=== PATIENT | female | born 1940 | race Caucasian/White ===

== ENCOUNTER 2016-09-05 19:26 | Inpatient (IN) | payer MEDICARE ==
--- NOTE | ~2016-09-05 | OP ---
Record Of Operation [facility] [address] [place]. [address] NAME: YOEL SOMERS : 42 STATUS : ADM IN [facility]#: [id number] AGE: 76 ADM/REG DATE : 09/05/16 MR#: [id number] REPORT SERV DATE: 09/07/16 DICTATED BY: JANET BANKS DATE: 09/06/16 REPORT STATUS : Draft TRANSCRIBED BY: MODJanie DATE: 09/06/16 DATE OF PROCEDURE: 09/06/2016 PREOPERATIVE DIAGNOSES: 1. Empyema of the right lung. 2. History of right lung pneumonia. 3. Breast carcinoma, status post left mastectomy. 4. Remote history of smoking. POSTOPERATIVE DIAGNOSES: 1. Empyema of the right lung. 2. History of right lung pneumonia. 3. Breast carcinoma, status post left mastectomy. 4. Remote history of smoking. PROCEDURE PERFORMED: Right video-assisted thoracic surgery with decortication of the right lung. SURGEON: Janet Banks M.D. SIDE SEAM MACHINE OPERATOR: Luis A Zhu. ANESTHESIA: General. BEREAVEMENT COORDINATOR: Rick Fraser M.D. HOSPITALIST: Rony Barrientos M.D. INDICATIONS: This is a 76-year-old female with a remote history of smoking who had a history of breast cancer, status post left pneumonectomy in the past. She was admitted to [facility] on the with shortness of breath and oxygen desaturation. She was diagnosed with pneumonia and had a white count of 53,000. She had right hilar prominence with extensive new airway disease on CT scan and a right effusion. She was treated with antibiotics and observed there. A Pulmonary consult was obtained the next day that indicated hypoxic respiratory failure secondary to pneumonia and empyema. She was transferred to [facility] yesterday for sepsis, respiratory failure, and loculated right pleural effusions. Dr. Sloan was initially consulted and plan was to do decortication on Thursday. Unfortunately, the patient had worsening oxygenation needs and continued shortness of breath. She was seen by Cardiology after a period of supraventricular tachycardia and it was felt that the patient should undergo treatment for her right empyema. We were asked to intervene and discuss this procedure with the patient and family, and wished to proceed. FINDINGS AT OPERATION: 1. Empyema involved in all three lobes. The middle lobe appeared to be socked in with pneumonia and had dense adhesions to the pericardial fat, most of these were taken Record Of Operation [address] [address] NAME: YOEL SOMERS : 42 STATUS : ADM IN PAT#: [id number] AGE: 76 ADM/REG DATE : 09/05/16 MR#: [id number] REPORT SERV DATE: 09/07/16 DICTATED BY: JANET BANKS DATE: 09/06/16 REPORT STATUS : Draft TRANSCRIBED BY: CHRIS DATE: 09/06/16 down. There was some abscess material in the chest that was removed. Cultures of the fluid were sent. 2. Complete decortication of the lung was performed. Pathologic specimen includes culture of the right chest. DESCRIPTION OF PROCEDURE: The patient was brought to the operating suite where general anesthesia was induced and airway was secured with a dual lumen endotracheal tube. Lines secured by Dr. Glez. Lopes catheter was placed. The patient was rolled in a left lateral decubitus position, right chest prepped with Hibiclens and ChloraPrep and draped with Ioban sterile sheets. The right lung was deflated by Anesthesia. Three VATS incisions in total were made. The first incision was a 3 to 4 cm incision placed along the posterior axillary line and five intercostal spaces above the costal margin. The second incision was made 1 to 2 cm in length and along the anterior axillary line and one intercostal space above this site and guided by thoracoscopic visualization. The third site was 1 to 2 cm in length and also along the anterior axillary line and two intercostal spaces inferior to the largest VATS incision and guided by thoracoscope. The largest VATS incision was carried through subcutaneous tissue and chest wall musculature. The intercostal musculature was divided and we entered the chest bluntly. A protractor soft tissue retractor was placed. There was a large amount of pleural fluid that was encountered and this was cloudy and this was aspirated and removed, some of this was sent for cultures. Then, the other 2 VATS incisions were created and access into the chest obtained under thoracoscopic visualization. Over the next hour, we decorticated the right lung completely. There were adhesions of the right middle lobe to the pericardium and pericardial fat, and as this was taken down, several abscesses were encountered and these were drained and evacuated. The chest was irrigated copiously with sterile water and saline. Decorticate peel was able to be removed from the lung almost in its complete entirety. Ventilation demonstrated good aeration and filling of the chest. Once this was completed, the chest was again irrigated with sterile water and saline, and hemostasis was obtained. Then, two chest tubes were placed to the most anterior thoracoscopic port sites and secured to the skin. The Protractor soft tissue retractor was removed and the largest VATS incision was closed in layers with absorbable suture and skin closed in subcuticular fashion. The patient tolerated the procedure well. There were no complications. Sponge and needle counts were correct. DISPOSITION: The patient was taken to the intensive care unit in a stable and intubated condition. RAMESH/CHRIS Janet Banks M.D. Record Of Operation [address] [address] NAME: YOEL SOMERS : 42 STATUS : ADM IN PAT#: [id number] AGE: 76 ADM/REG DATE : 09/05/16 MR#: [id number] REPORT SERV DATE: 09/07/16 DICTATED BY: JANET BANKS DATE: 09/06/16 REPORT STATUS : Draft TRANSCRIBED BY: CHRIS DATE: 09/06/16 / [id number] CC: Rosa Bergman M.D.
--- NOTE | ~2016-09-05 | DS ---
Discharge Summary [address] [place]. [address] NAME: YOEL SOMERS : 42 STATUS : DIS IN PAT#: [id number] AGE: 76 ADM/REG DATE : 09/05/16 MR#: [id number] REPORT SERV DATE: 09/16/16 DICTATED BY: KRYSTA LEE DATE: 09/13/16 REPORT STATUS : Draft TRANSCRIBED BY: MODL DATE: 09/13/16 ADMISSION DATE: 09/05/2016 DISCHARGE DATE: 09/13/2016 DISCHARGE DIAGNOSES: 1. Sepsis with right-sided pneumonia. 2. Right-sided community-acquired pneumonia with a parapneumonic complicated effusion, status post video-assisted thoracostomy and pleurodesis done by Dr. Banks. 3. Antibiotic-associated diarrhea. 4. Recovered acute kidney injury. 5. Hypertension. 6. Chronic pain management patient, was weaned off MS Contin during this hospitalization, now she is taking only Roxicodone for the as-needed pain. 7. Atrial tachycardia during this hospitalization, seen by Dr. Meek, was put on amiodarone and Coreg, was replaced from Lopressor. 8. Obesity. CONSULTANTS: 1. Asha Lopez M.D. for Pulmonary. 2. Derick Banks M.D. 3. Cirilo Meek M.D. 4. Nicola Thorpe M.D. PROCEDURE: Right video-assisted thoracic surgery with decortication of the right lung done by Dr. Banks. HISTORY OF PRESENT ILLNESS: This is a 76-year-old female patient who initially came to the emergency room with pain allover, especially with chest pain on the date of 09/04/2016. Please see dictated H and P done by Dr. Morales for the detailed physical examination and present illness. HOSPITAL COURSE: The patient was admitted to the hospital with right-sided pneumonia with a finding of complicated effusion. She was treated with IV antibiotics, seen by Dr. Rosemary Dent for the loculated right pleural effusion and sepsis, and she was put on empiric antibiotics with Zosyn and Levaquin. Because of the concern for the empyema, the patient was recommended to be transferred to [facility] for VATS and decortication under Dr. Banks's evaluation. She came to the hospital, got VATS on the right side and decortication. Meanwhile, during the hospitalization, she went through atrial tachycardia and chronic pain issue along with chronic benzodiazepine and opioid use. Meanwhile, she was kept in the hospital, her chronic long-acting opioid has been discontinued by one of our thoracic surgeons, and she was maintained on as-needed short- acting Roxicodone use. She is tolerating fairly well. Her medications have been slightly changed from Lopressor to Coreg and amiodarone was added on this admission through Dr. Discharge Summary [address] [address] NAME: YOEL SOMERS : 42 STATUS : DIS IN PAT#: [id number] AGE: 76 ADM/REG DATE : 09/05/16 MR#: [id number] REPORT SERV DATE: 09/16/16 DICTATED BY: KRYSTA LEE DATE: 09/13/16 REPORT STATUS : Draft TRANSCRIBED BY: CHRIS DATE: 09/13/16 Laura's recommendation. Most recently, during this hospitalization, she suffered from constant diarrhea, it was thought to be related to antibiotic use. After the Zosyn was discontinued, her diarrhea has been much improved. Her C. diff stool test was negative. Overall had a long hospitalization with maximized inpatient benefit. The patient finally decided to go to alf facility for acute rehab. Therefore, she will be discharged to [facility] for ongoing rehab. Please see dictated interim discharge summary done by Dr. Gallagher for the detailed hospitalization course. DISCHARGE MEDICATION: 1. Aspirin 81 mg once a day. 2. Amiodarone 20 mg once a day. 3. Wellbutrin XL 150 mg once a day. 4. Coreg 12.5 mg twice a day. 5. Lexapro 20 mg once a day. 6. Zantac 150 mg twice a day. 7. Neurontin 600 mg three times a day. 8. Ativan 0.5 mg once a day and 1 mg at bed time. 9. Multivitamin once a day. 10.Nystatin 4 times a day, swish and swallow. 11.Florastor 1 capsule twice a day. 12.Spiriva once a day. 13.Trazodone 100 mg once at nighttime. 14.Zinc sulfate 220 mg once a day. 15.Brovana once a day. 16.DuoNeb four times a day. 17.Tylenol as needed. 18.Protonix 40 mg once at nighttime. 19.MS Contin was discontinued. 20.Roxicodone was given at 10 mg every 6 to 8 hours as needed. DISPOSITION: The patient is discharged to [facility]. DIET: Regular diet. TIME SPENT: More than 30 minutes in discharge coordination and education. EKL/MODL Krysta Lee M.D. Discharge Summary [address] [address] NAME: YOEL SOMERS : 42 STATUS : DIS IN PAT#: [id number] AGE: 76 ADM/REG DATE : 09/05/16 MR#: [id number] REPORT SERV DATE: 09/16/16 DICTATED BY: KRYSTA LEE DATE: 09/13/16 REPORT STATUS : Draft TRANSCRIBED BY: CHRIS DATE: 09/13/16 / [id number] CC: Rosa Arias M.D.
--- NOTE | ~2016-09-05 | IDS ---
Interim Discharge Summary [facility] [address] [place]. [address] NAME: YOEL SOMERS : 44 STATUS : ADM IN [facility]#: [id number] AGE: 76 ADM/REG DATE : 09/05/16 MR#: [id number] REPORT SERV DATE: 09/12/16 DICTATED BY: JEWEL GALLAGHER DATE: 09/12/16 REPORT STATUS : Draft TRANSCRIBED BY: MODL DATE: 09/12/16 ADMISSION DATE: 09/05/2016 DISCHARGE DATE: CONSULTANTS: 1. Asha Lopez M.D., Pulmonary Critical Care. 2. Derick Banks M.D., Cardiothoracic Surgeon. 3. Cirilo Meek M.D., Cardiology. DISCHARGE DIAGNOSES: 1. Sepsis. 2. Right-sided community-acquired pneumonia. 3. Complicated right parapneumonic effusion, requiring video-assisted thoracic surgery decortication on 09/06/2016. 4. Antibiotic-associated diarrhea. 5. Acute kidney injury, transient, resolved. 6. Acute hypoxic respiratory failure. 7. Essential thrombocythemia. 8. Leukocytosis, probably due to sepsis. 9. Hypertension, not ideally controlled. 10.Chronic pain in back and hips and neuropathy. 11.Major depression, anxiety, and insomnia with restless legs. 12.History of left-sided breast cancer, stage IIIC. 13.History of peripheral neuropathy due to chemotherapy. 14.T7 compression fracture. 15.Episodes of supraventricular tachycardia. 16.History of previous pulmonary embolism in 2010. 17.History of psoriasis in the past. HISTORY: The patient presented to [facility] Emergency Room with shortness of breath, cough, respiratory rate 22, pulse 109, and chest x-ray revealed right basilar pneumonia. She had a CT scan of her chest without contrast on 09/04/2016 showing right middle lobe and right lower lobe infiltrates, multifocal loculated pleural effusion, right chest, fatty liver and a chronic T12 compression fracture with vertebroplasty-type changes. The patient also had CT scan of the abdomen and pelvis showing no acute intraabdominal pathology other than the fatty liver, some chronic renal cortical scarring, and chronic right hip arthroplasty changes. HOSPITAL COURSE: The patient was treated with antibiotics and transferred down here to this [place] to be seen by Cardiothoracic Surgery and Dr. Banks took her to the operating room on 09/06/2016 and did right video-assisted thoracic surgery with decortication and chest tube in place post procedure. I find no material that was submitted for pathology yet at this time. However, cultures of blood, no growth. Cultures of the right pleural fluid, grew out a sparse amount of diphtheroids, felt to be consistent with contaminant. The patient has had a slow recovery, but chest tubes are out now, so she is a little bit Interim Discharge Summary [address] [address] NAME: YOEL SOMERS : 42 STATUS : ADM IN PAT#: [id number] AGE: 76 ADM/REG DATE : 09/05/16 MR#: [id number] REPORT SERV DATE: 09/12/16 DICTATED BY: JEWEL GALLAGHER DATE: 09/12/16 REPORT STATUS : Draft TRANSCRIBED BY: CHRIS DATE: 09/12/16 more mobile. She has had a lot of diarrhea. The stool specimens have been C. diff negative. She has no significant abdominal pain with it. It is improving with Lomotil. She is eating better. Her nausea is better. Her chronic pain medicines have been tapered from her MS Contin, which has been stopped and we reduced the quantity of Roxicodone from 20 mg q.6 hours to 10 mg q.6 hours. She asked for more help to sleep at night, so I have increased her trazodone from 100 to 150 at night. While here, she has had episodes of supraventricular tachycardia and was seen by Dr. Cirilo Meek. She had metoprolol given intravenously and this helped. He recommended that she be given beta-lindy orally and low-dose amiodarone for rhythm control perioperatively, the patient's rhythm has remained sinus. She has a history of breast cancer. She is supposed to be taking anastrozole. She had forgotten to mention it in her home medicines. We have had her medical oncologist, Dr. Thorpe, see her because of her persistent leukocytosis. He felt that her leukocytosis was probably more part of her infectious process than it was from her essential thrombocythemia. He does not recommend any additional therapy other than getting her back on her anastrozole and follow up with him in the office longitudinally. Physical Therapy feels she needs inpatient prison facility re[facility] before she goes back home. She has been somewhat reluctant to that, but does seem to be open to it at this time and we are anticipating that to take place on 09/13/2016 as we have been told that is when a bed will be available. The patient's procalcitonin has normalized and she is off her antibiotics at this point in time. ORLANDO/CHRIS Jewel Gallagher M.D. / [id number] CC: Rosa Gandara M.D.
--- NOTE | ~2016-09-05 | CN ---
Consultation Report [facility] [address] [place]. [address] NAME: YOEL SOMERS : 44 STATUS : ADM IN PAT#: [id number] AGE: 76 ADM/REG DATE : 09/05/16 MR#: [id number] REPORT SERV DATE: 09/07/16 DICTATED BY: CIRILO BELLE DATE: 09/06/16 REPORT STATUS : Draft TRANSCRIBED BY: MODL DATE: 09/06/16 CARDIOLOGY CONSULT NOTE. DATE OF CONSULTATION: INDICATIONS: SVT. HISTORY OF PRESENT ILLNESS: Ms Somers is a 76-year-old female who is admitted to [facility] with pneumonia, empyema, and severe leukocytosis, who is transferred to [facility] for further evaluation and management as well as CT surgical consultation for empyema and consideration of decortication. On arrival, she has been a bit confused with hypoxic respiratory failure. In the setting of this she has had a recurrent episode of a "supraventricular tachycardia" with a narrow complex and short RP tachycardia at a rate of 150 beats per minute. IV metoprolol was recommended and a single dose was given with conversion to sinus rhythm/sinus tachycardia at 105 beats per minute. She is resting comfortably, but appears dyspneic at rest. She has some pleuritic chest pain with deep breath and cough. She has a history of SVT, that was previously managed on beta- lindy therapy per report. She has no angina or coronary artery disease history. She has had no symptoms of palpitations, syncope, orthopnea, or edema prior to her acute presentation. REVIEW OF SYSTEMS: Pertinent positives and negatives are as outlined above, and all others are negative. PAST MEDICAL HISTORY: 1. SVT. 2. History of breast cancer. 3. Gastroesophageal reflux disease. 4. Depression. CURRENT HOME MEDICATIONS: 1. Metoprolol 25 mg twice daily. 2. Aspirin 81 mg daily. 3. Wellbutrin. 4. Lexapro. 5. Neurontin. 6. Ativan. 7. MS Contin as directed. 8. Multivitamin daily. 9. Oxycodone as directed. 10.Protonix 40 mg daily. 11.Zantac 150 mg twice daily. 12.Trazodone 100 mg q.h.s. Consultation Report [facility] [address] [place]. [address] NAME: YOEL SOMERS : 44 STATUS : ADM IN PAT#: [id number] AGE: 76 ADM/REG DATE : 09/05/16 MR#: [id number] REPORT SERV DATE: 09/07/16 DICTATED BY: CIRILO BELLE DATE: 09/06/16 REPORT STATUS : Draft TRANSCRIBED BY: CHRIS DATE: 09/06/16 ALLERGIES: ERYTHROMYCIN WITH AN UNKNOWN REACTION. SOCIAL HISTORY: She does not use tobacco products, consume alcohol, or use illegal drugs. FAMILY HISTORY: No significant family history of premature CAD. PHYSICAL EXAMINATION: VITALS: Temp 101, Pulse 105, Respirations 24, BP 130/70. GENERAL: Well-developed female who is dyspneic and tachypneic at rest, and appears uncomfortable. HEENT: Sclerae anicteric, mucous membranes moist and without lesions. NECK: No jugular venous distention. No hepatojugular reflux, carotid upstrokes 2+ and symmetric, there are no carotid or subclavian bruit. LUNGS: Mildly decreased breath sounds throughout, more severe at the right base with diffuse wheezes. CARDIOVASCULAR: Regular and tachycardic with distant S1 and S2, no audible S3 or S4. No audible murmurs. No parasternal lift. PMI is nonpalpable. ABDOMEN: Obese, soft and nontender. Bowel sounds are positive and normoactive. PULSES: Radial and dorsalis pedis pulses are all 2+ and symmetric. EXTREMITIES: Warm. There is no edema. SKIN: No clubbing or cyanosis, no rashes or lesions. IMPRESSION: 1. Supraventricular tachycardia, regular narrow complex short RP rhythm. 2. Pneumonia. 3. Empyema. 4. Acute hypoxic respiratory failure. PLAN: Ms Somers is back in sinus rhythm/sinus tachycardia, appropriate for recurrent acute presentation, after single dose of IV metoprolol. She has previously been managed on oral metoprolol which have been held for the past several days. She will be transferred to an IMCU versus an ICU bed per Internal Medicine and Critical Care Medicine due to acute hypoxic respiratory failure. She is going to proceed with a decortication on Thursday per CT Surgery. IV antibiotics per Primary Service until then. Recommend resuming low-dose metoprolol and starting low-dose amiodarone once daily for rhythm control perioperatively. AEA/MODL Cirilo Belle M.D. / [id number] Consultation Report [address] [place]. [address] NAME: YOEL SOMERS : 44 STATUS : ADM IN PAT#: [id number] AGE: 76 ADM/REG DATE : 09/05/16 MR#: [id number] REPORT SERV DATE: 09/07/16 DICTATED BY: CIRILO BELLE. DATE: 09/06/16 REPORT STATUS : Draft TRANSCRIBED BY: CHRIS DATE: 09/06/16 CC: Rosa Bergman M.D.
--- NOTE | ~2016-09-05 | DS ---
Discharge Summary [address] [place]. [address] NAME: YOEL SOMERS : 44 STATUS : DIS IN PAT#: [id number] AGE: 76 ADM/REG DATE : 09/05/16 MR#: [id number] REPORT SERV DATE: 09/16/16 DICTATED BY: KRYSTA LEE DATE: 09/15/16 REPORT STATUS : Draft TRANSCRIBED BY: MODL DATE: 09/15/16 ADMISSION DATE: 09/05/2016 DISCHARGE DATE: 09/15/2016 ADDENDUM: DISCHARGE DIAGNOSES: 1. Sepsis with right-sided pneumonia. 2. Right-sided pneumonia with parapneumonic complicated effusion status post video- assisted thoracotomy and decortication by Dr. Banks. 3. Antibiotic-associated diarrhea. 4. Recovered acute kidney injury. 5. Hypertension. 6. Chronic pain. The patient was off MS Contin during this hospitalization. Now, she is taking only Roxicodone for as needed basis. 7. Atrial tachycardia during this hospitalization, seen by Dr. Meek, was put on amiodarone and Coreg, and was replaced from Lopressor. 8. Obesity. CONSULTANTS: 1. Dr. Lopez. 2. Dr. Banks. 3. Dr. Meek. 4. Dr. Thorpe for leukocytosis. PROCEDURE: Right-side VAT. HISTORY OF PRESENT ILLNESS: This is a 76-year-old female patient, who initially came to the emergency room with pain all over, especially chest pain, was found to have pneumonia and parapneumonic fluid. Please see dictated H and P. HOSPITAL COURSE: Please see dictated interim discharge summary from Dr. Gallagher and also discharge summary from Dr. Umm Bowman and discharge summary from myself, . The patient was transferred to [facility] for the cardiothoracic procedure, had an improvement with it and she was on antibiotics with broad-spectrum antibiotics. The most recent issue was antibiotic-associated diarrhea and hypertension. Meanwhile, she was checked for C diff, it was negative and she was put on antidiarrheal medications. Her blood pressure started to go up little more during this weekend. We will put her on the hydralazine on top of her current medications. Again, she was off MS Contin during this hospitalization. She is only taking the short- acting Roxicodone on an as-needed basis and for the weekend time, she had to stay overnight in the hospital due to the inability of nursing facility to admit this patient to their facility with lack of bed availability. Therefore, she stayed two more nights in the hospital and after medical issues stabilized to be discharged. Discharge Summary [address] [place]. [address] NAME: YOEL SOMERS : 44 STATUS : DIS IN PAT#: [id number] AGE: 76 ADM/REG DATE : 09/05/16 MR#: [id number] REPORT SERV DATE: 09/16/16 DICTATED BY: KRYSTA LEE DATE: 09/15/16 REPORT STATUS : Draft TRANSCRIBED BY: MODL DATE: 09/15/16 DISCHARGE MEDICATION: 1. Aspirin 81 mg once a day. 2. Amiodarone 200 mg once a day. 3. Wellbutrin XL 150 mg once a day. 4. Coreg 12.5 mg twice a day. 5. Lexapro 20 mg once a day. 6. Zantac 150 mg twice a day. 7. Neurontin 600 mg three times a day. 8. Ativan 0.5 mg once in the morning time and 1 mg at bedtime. 9. Multivitamin once a day. 10.Nystatin four times a day. 11.Florastor twice a day. 12.Spiriva once a day. 13.Trazodone 100 mg once at nighttime. 14.Zinc sulfate 220 mg once a day. 15.Brovana once a day. 16.DuoNeb four times a day. 17.Tylenol as needed. 18.MS Contin was discontinued. 19.Roxicodone was given 10 mg every six to eight hours. 20.Hydralazine 25 mg q.8h. 21.Cholestyramine 4 g twice a day. DISPOSITION: The patient is discharged to [facility]. TIME SPENT: More than 30 minutes on discharge. EKL/MODL Krysta Lee M.D. / [id number] CC: KrystaRosa Wilson M.D.
[~2016-09-05 19:26] MED LIST: ACET500CAP PO; AMB10 PO; ARIMIDEX1 PO; ASA5GR PO; ASAB PO; ATV1 PO; CELEXA20 PO; DEX4 PO; DEXEDRINE10 MG OR; DEXTROAMPHET10 MG OR; DEXTROAMPHET10 MG PO; DSS PO; EVISTA60 PO; HALF81 PO; LEXAPRO20 PO; LIPITOR20 PO; LOP25 PO; MEVACOR PO; MEVACOR40 MG PO; MSCONT15 PO; MULTIVIT/MIN PO; NEUR400 PO; NEUR600 PO; NEXIUM40 PO; OXYCOD PO; OXYCON20 PO; PR25 PO; PRISTIQ50 MG PO; PROTONIX PO; RECLAST IV; RESTORIL30 MG PO; ROXICODONE15 MG PO; STOOL SOFTEN100 MG; STOOL SOFTEN100 MG PO; STOOL SOFTENER PO; TRAZ100 PO; VANC125UDL PO; WELLXL150 PO; ZANTAC 150 PO; ZANTAC150 MG PO; ZESTORETIC1 TA1 PO; [UNRECOGNIZED DRUG - OTHER] PO; [UNRECOGNIZED DRUG - OTHER] PO
[2016-09-06 06:38] LABS: HEMOGLOBIN 10.3 g/dL (12.0-16.0); MEAN PLATELET VOLUME 9.1 fL (9.2-13.0); PLATELET COUNT 576 10/3/uL (150-400); RBC DISTRIBUTION WIDTH 13.6 % (12.0-16.0); RED CELL COUNT 3.55 10/6/uL (4.0-5.6)
[2016-09-06 06:39] LABS: HEMATOCRIT 32.8 % (36.0-48.0); MANUAL DIFF YES %; MEAN CORPUS HGB CONC 31.4 g/dL (32.0-36.0); MEAN CORPUSCULAR VOLUME 92.4 fL (80-100); WHITE BLOOD CELLS 28.5 10/3/uL (4.5-10.5)
[2016-09-06 07:03] LABS: BAND NEUTROPHILS 2 %; EOSINOPHILS 1 %; EOSINOPHILS ABSOLUTE (CALC) 0.29 10/3/uL (0.0-0.53); LYMPHOCYTES 5 %; LYMPHOCYTES ABSOLUTE (CALC) 1.43 10/3/uL (0.67-4.30); MONOCYTES 10 %; MONOCYTES ABSOLUTE (CALC) 2.85 10/3/uL (0.21-1.20); NEUTROPHILS ABSOLUTE (CALC) 23.94 10/3/uL (2.02-8.40); PLATELET ESTIMATE SLT INC (ADEQUATE); SEGMENTED NEUTROPHIL (0) 82 %; TOTAL NUCLEATED CELLS 100
[2016-09-06 07:04] LABS: RBC MORPHOLOGY NORM (NORMAL)
[2016-09-06 07:15] LABS: ALBUMIN 1.6 G/DL (3.5-5.0); BUN (BLOOD UREA NITROGEN) 33 MG/DL (6-23); CALCIUM, SERUM 8.5 MG/DL (8.5-10.4); CHLORIDE, SERUM 101 MMOL/L (96-112); CO2 (CARBON DIOXIDE) 25 MMOL/L (24-34); GFR AFRICAN AMERICAN 33 ML/MIN (>=60); GFR NON AFRICAN AMERICAN 28 ML/MIN (>=60); GLUCOSE, SERUM 96 MG/DL (60-99); PHOSPHORUS, SERUM 4.3 MG/DL (2.5-4.5); POTASSIUM, SERUM 4.4 MMOL/L (3.5-5.3); SODIUM, SERUM 139 MMOL/L (135-148)
[2016-09-06 07:16] LABS: CREATININE 1.74 MG/DL (0.55-1.02)
[2016-09-06 07:20] LABS: PROCALCITONIN 3.64 ng/mL (<0.5)
[2016-09-06 12:40] LABS: ALLENS TEST Pos; BE (BASE EXCESS) -0.6 MEQ/L (0 +/- 2.5); CARBOXYHEMOGLOBIN 0.3 % (0-3); DEVICE NRB; HCO3 (ACTUAL BICARBONATE) 25.6 MEQ/L (23-27); HEMOBLOGIN CONTENT 12.2 G/DL (12-16); INSTRUMENT SERIAL # 35151; METHEMOGLOBIN 0.6 % (0-3); O2 CONTENT 16.7 VOL% (18-24); PCO2 (CO2 TENSION) 49 MMHG (35-45); PO2 (O2 TENSION) 110 MMHG (79-93); SAMPLE Arterial; pH 7.34 (7.37-7.43)
[2016-09-06 14:06] LABS: ALKALINE PHOSPHATASE 108 U/L (45-117); DIRECT BILIRUBIN 0.1 MG/DL (0.0-0.4); FREE T4 1.63 NG/DL (0.76-1.46); INDIRECT BILIRUBIN(NOT ORDER) 0.2 MG/DL (0.1-0.9); SGOT(AST) 26 U/L (5-40); SGPT(ALT) 19 U/L (5-65); TOTAL BILIRUBIN 0.3 MG/DL (0-1.2); TOTAL PROTEIN 6.2 G/DL (6.0-8.5)
[2016-09-06 14:08] LABS: ULTRASENSITIVE TSH 0.894 MCIU/ML (0.358-3.740)
[2016-09-06 18:41] LABS: BE (BASE EXCESS) -2.6 MEQ/L (0 +/- 2.5); CARBOXYHEMOGLOBIN 0.1 % (0-3); HCO3 (ACTUAL BICARBONATE) 25.1 MEQ/L (23-27); HEMOBLOGIN CONTENT 12.3 G/DL (12-16); INSTRUMENT SERIAL # 11843; METHEMOGLOBIN 0.6 % (0-3); MODE CMV; O2 CONTENT 18.1 VOL% (18-24); OPERATOR ID 19104; PCO2 (CO2 TENSION) 56 MMHG (35-45); PO2 (O2 TENSION) 388 MMHG (79-93); SAMPLE Arterial; TIDAL VOLUME 400 ML; pH 7.27 (7.37-7.43)
[2016-09-06 19:47] LABS: HEMATOCRIT 35.7 % (36.0-48.0); MANUAL DIFF YES %; MEAN CORPUS HGB CONC 30.8 g/dL (32.0-36.0); MEAN CORPUSCULAR HEMOGLOB 28.6 pg (26.0-34.0); MEAN PLATELET VOLUME 9.2 fL (9.2-13.0); PLATELET COUNT 573 10/3/uL (150-400); RBC DISTRIBUTION WIDTH 13.8 % (12.0-16.0); RED CELL COUNT 3.84 10/6/uL (4.0-5.6); WHITE BLOOD CELLS 27.4 10/3/uL (4.5-10.5)
[2016-09-06 19:58] LABS: EOSINOPHILS 1 %; EOSINOPHILS ABSOLUTE (CALC) 0.27 10/3/uL (0.0-0.53); LYMPHOCYTES 4 %; MONOCYTES 1 %; MONOCYTES ABSOLUTE (CALC) 0.27 10/3/uL (0.21-1.20); NEUTROPHILS ABSOLUTE (CALC) 25.76 10/3/uL (2.02-8.40); PLATELET ESTIMATE INC (ADEQUATE); SEGMENTED NEUTROPHIL (0) 94 %; TOTAL NUCLEATED CELLS 100
[2016-09-06 19:59] LABS: CALCIUM, SERUM 8.1 MG/DL (8.5-10.4); CHLORIDE, SERUM 104 MMOL/L (96-112); CO2 (CARBON DIOXIDE) 25 MMOL/L (24-34); CREATININE 1.25 MG/DL (0.55-1.02); GFR AFRICAN AMERICAN 49 ML/MIN (>=60); GFR NON AFRICAN AMERICAN 42 ML/MIN (>=60); POTASSIUM, SERUM 4.5 MMOL/L (3.5-5.3); SODIUM, SERUM 140 MMOL/L (135-148)
[2016-09-06 20:00] LABS: BUN (BLOOD UREA NITROGEN) 26 MG/DL (6-23)
[2016-09-06 20:01] LABS: GLUCOSE, SERUM 132 MG/DL (60-99)
[2016-09-07 04:27] LABS: BUN (BLOOD UREA NITROGEN) 24 MG/DL (6-23); CALCIUM, SERUM 7.9 MG/DL (8.5-10.4); CHLORIDE, SERUM 107 MMOL/L (96-112); CO2 (CARBON DIOXIDE) 25 MMOL/L (24-34); CREATININE 1.13 MG/DL (0.55-1.02); GFR AFRICAN AMERICAN 55 ML/MIN (>=60); GFR NON AFRICAN AMERICAN 48 ML/MIN (>=60); GLUCOSE, SERUM 153 MG/DL (60-99); HEMATOCRIT 31.2 % (36.0-48.0); HEMOGLOBIN 9.5 g/dL (12.0-16.0); MANUAL DIFF YES %; MEAN CORPUS HGB CONC 30.4 g/dL (32.0-36.0); MEAN CORPUSCULAR HEMOGLOB 28.1 pg (26.0-34.0); MEAN CORPUSCULAR VOLUME 92.3 fL (80-100); MEAN PLATELET VOLUME 9.2 fL (9.2-13.0); PLATELET COUNT 575 10/3/uL (150-400); POTASSIUM, SERUM 4.5 MMOL/L (3.5-5.3); RED CELL COUNT 3.38 10/6/uL (4.0-5.6); SODIUM, SERUM 142 MMOL/L (135-148); WHITE BLOOD CELLS 23.2 10/3/uL (4.5-10.5)
[2016-09-07 04:53] LABS: BURR CELLS 1+ (3-10/OIF) (0-2/OIF); LYMPHOCYTES 6 %; LYMPHOCYTES ABSOLUTE (CALC) 1.39 10/3/uL (0.67-4.30); NEUTROPHILS ABSOLUTE (CALC) 21.81 10/3/uL (2.02-8.40); OVALOCYTES 1+ (3-10/OIF) (0-2/OIF); RBC MORPHOLOGY ABN (NORMAL); SEGMENTED NEUTROPHIL (0) 94 %; TEARDROP SHAPED RBCS FEW (3-10/OIF); TOTAL NUCLEATED CELLS 100
[2016-09-07 05:07] LABS: BE (BASE EXCESS) 0.2 MEQ/L (0 +/- 2.5); CARBOXYHEMOGLOBIN 0.3 % (0-3); HCO3 (ACTUAL BICARBONATE) 25.9 MEQ/L (23-27); HEMOBLOGIN CONTENT 10.6 G/DL (12-16); INSTRUMENT SERIAL # 11843; METHEMOGLOBIN 0.5 % (0-3); O2 CONTENT 14.4 VOL% (18-24); PCO2 (CO2 TENSION) 46 MMHG (35-45); PO2 (O2 TENSION) 89 MMHG (79-93); pH 7.37 (7.37-7.43)
[2016-09-07 05:08] LABS: ALLENS TEST Pos; MODE CMV; OPERATOR ID 30013; SAMPLE Arterial; TIDAL VOLUME 400 ML
[2016-09-08 07:40] LABS: CALCIUM, SERUM 8.3 MG/DL (8.5-10.4); CHLORIDE, SERUM 111 MMOL/L (96-112); CO2 (CARBON DIOXIDE) 21 MMOL/L (24-34); GFR AFRICAN AMERICAN 73 ML/MIN (>=60); GFR NON AFRICAN AMERICAN 63 ML/MIN (>=60); POTASSIUM, SERUM 4.3 MMOL/L (3.5-5.3); SODIUM, SERUM 143 MMOL/L (135-148)
[2016-09-08 07:41] LABS: BUN (BLOOD UREA NITROGEN) 20 MG/DL (6-23); GLUCOSE, SERUM 95 MG/DL (60-99)
[2016-09-08 07:57] LABS: BASOPHILS 0.6 %; BASOPHILS ABSOLUTE 0.11 10/3/uL (0.0-0.16); EOSINOPHILS 0.6 %; HEMATOCRIT 38.4 % (36.0-48.0); HEMOGLOBIN 11.4 g/dL (12.0-16.0); IMMATURE GRANULOCYTES 1.7 %; IMMATURE GRANULOCYTES ABSOLUTE 0.28 10/3/uL (0.0-0.11); LYMPHOCYTES 6.8 %; LYMPHOCYTES ABSOLUTE 1.16 10/3/uL (0.67-4.30); MANUAL DIFF NO %; MEAN CORPUS HGB CONC 29.7 g/dL (32.0-36.0); MEAN CORPUSCULAR HEMOGLOB 28.3 pg (26.0-34.0); MEAN CORPUSCULAR VOLUME 95.3 fL (80-100); MEAN PLATELET VOLUME 9.4 fL (9.2-13.0); MONOCYTES 8.7 %; MONOCYTES ABSOLUTE 1.48 10/3/uL (0.21-1.20); NEUTROPHILS 81.6 %; NEUTROPHILS ABSOLUTE 13.82 10/3/uL (2.02-8.40); PLATELET COUNT 523 10/3/uL (150-400); RBC DISTRIBUTION WIDTH 14.2 % (12.0-16.0); RED CELL COUNT 4.03 10/6/uL (4.0-5.6)
[2016-09-08 08:13] LABS: PROCALCITONIN 1.87 ng/mL (<0.5)
[2016-09-08 08:17] LABS: BAND NEUTROPHILS 3 %; LYMPHOCYTES 9 %; LYMPHOCYTES ABSOLUTE (CALC) 1.53 10/3/uL (0.67-4.30); MONOCYTES 10 %; NEUTROPHILS ABSOLUTE (CALC) 13.77 10/3/uL (2.02-8.40); PLATELET ESTIMATE SLT INC (ADEQUATE); SEGMENTED NEUTROPHIL (0) 78 %; TOTAL NUCLEATED CELLS 100
[2016-09-08 08:18] LABS: RBC MORPHOLOGY NORM (NORMAL)
[2016-09-10 04:27] LABS: HEMOGLOBIN 10.1 g/dL (12.0-16.0); MEAN CORPUS HGB CONC 30.8 g/dL (32.0-36.0); MEAN CORPUSCULAR HEMOGLOB 28.4 pg (26.0-34.0); MEAN PLATELET VOLUME 8.8 fL (9.2-13.0); PLATELET COUNT 501 10/3/uL (150-400); RED CELL COUNT 3.56 10/6/uL (4.0-5.6); WHITE BLOOD CELLS 17.7 10/3/uL (4.5-10.5)
[2016-09-10 04:29] LABS: HEMATOCRIT 32.8 % (36.0-48.0); MANUAL DIFF YES %; MEAN CORPUSCULAR VOLUME 92.1 fL (80-100)
[2016-09-10 04:39] LABS: ALBUMIN 1.6 G/DL (3.5-5.0); CALCIUM, SERUM 7.6 MG/DL (8.5-10.4); CHLORIDE, SERUM 109 MMOL/L (96-112); CO2 (CARBON DIOXIDE) 25 MMOL/L (24-34); CREATININE 0.83 MG/DL (0.55-1.02); GFR AFRICAN AMERICAN 81 ML/MIN (>=60); GFR NON AFRICAN AMERICAN 69 ML/MIN (>=60); GLUCOSE, SERUM 111 MG/DL (60-99); SGOT(AST) 26 U/L (5-40); SGPT(ALT) 19 U/L (5-65); SODIUM, SERUM 144 MMOL/L (135-148); TOTAL BILIRUBIN 0.3 MG/DL (0-1.2); TOTAL PROTEIN 5.4 G/DL (6.0-8.5)
[2016-09-10 04:40] LABS: A/G RATIO 0.4 (0.7-1.9); ALKALINE PHOSPHATASE 58 U/L (45-117); BUN (BLOOD UREA NITROGEN) 14 MG/DL (6-23); GLOBULIN 3.8 G/DL (2.5-4.1); PHOSPHORUS, SERUM 3.1 MG/DL (2.5-4.5)
[2016-09-10 04:57] LABS: BAND NEUTROPHILS 4 %; LYMPHOCYTES 15 %; LYMPHOCYTES ABSOLUTE (CALC) 2.66 10/3/uL (0.67-4.30); MONOCYTES 2 %; MONOCYTES ABSOLUTE (CALC) 0.35 10/3/uL (0.21-1.20); NEUTROPHILS ABSOLUTE (CALC) 14.69 10/3/uL (2.02-8.40); SEGMENTED NEUTROPHIL (0) 79 %; TOTAL NUCLEATED CELLS 100
[2016-09-10 04:58] LABS: PLATELET ESTIMATE INC (ADEQUATE); SPHEROCYTES FEW (3-10/OIF)
[2016-09-11 05:25] LABS: HEMOGLOBIN 10.1 g/dL (12.0-16.0); MEAN CORPUS HGB CONC 29.7 g/dL (32.0-36.0); MEAN CORPUSCULAR HEMOGLOB 28.1 pg (26.0-34.0); MEAN CORPUSCULAR VOLUME 94.7 fL (80-100); MEAN PLATELET VOLUME 8.8 fL (9.2-13.0); PLATELET COUNT 485 10/3/uL (150-400); RBC DISTRIBUTION WIDTH 14.3 % (12.0-16.0); RED CELL COUNT 3.59 10/6/uL (4.0-5.6); WHITE BLOOD CELLS 19.6 10/3/uL (4.5-10.5)
[2016-09-11 05:30] LABS: MANUAL DIFF YES %
[2016-09-11 05:35] LABS: ALBUMIN 1.6 G/DL (3.5-5.0); BUN (BLOOD UREA NITROGEN) 11 MG/DL (6-23); CALCIUM, SERUM 7.9 MG/DL (8.5-10.4); CHLORIDE, SERUM 112 MMOL/L (96-112); CO2 (CARBON DIOXIDE) 20 MMOL/L (24-34); CREATININE 0.78 MG/DL (0.55-1.02); GFR AFRICAN AMERICAN 87 ML/MIN (>=60); GFR NON AFRICAN AMERICAN 75 ML/MIN (>=60); GLUCOSE, SERUM 107 MG/DL (60-99); PHOSPHORUS, SERUM 2.7 MG/DL (2.5-4.5); POTASSIUM, SERUM 3.9 MMOL/L (3.5-5.3); SODIUM, SERUM 143 MMOL/L (135-148)
[2016-09-11 06:37] LABS: PROCALCITONIN 0.22 ng/mL (<0.5)
[2016-09-11 07:21] LABS: BAND NEUTROPHILS 1 %; EOSINOPHILS 3 %; EOSINOPHILS ABSOLUTE (CALC) 0.59 10/3/uL (0.0-0.53); LYMPHOCYTES 13 %; LYMPHOCYTES ABSOLUTE (CALC) 2.55 10/3/uL (0.67-4.30); MONOCYTES 5 %; MONOCYTES ABSOLUTE (CALC) 0.78 10/3/uL (0.21-1.20); NEUTROPHILS ABSOLUTE (CALC) 15.48 10/3/uL (2.02-8.40); SEGMENTED NEUTROPHIL (0) 78 %; TOTAL NUCLEATED CELLS 100
[2016-09-11 07:22] LABS: ATYPICAL LYMPH OCC (0-2%) (0-5%); PLATELET ESTIMATE SLT INC (ADEQUATE); RBC MORPHOLOGY NORM (NORMAL)
[2016-09-12 05:28] LABS: BASOPHILS 0.6 %; EOSINOPHILS 1.8 %; HEMATOCRIT 32.2 % (36.0-48.0); HEMOGLOBIN 9.5 g/dL (12.0-16.0); IMMATURE GRANULOCYTES 4.8 %; IMMATURE GRANULOCYTES ABSOLUTE 0.81 10/3/uL (0.0-0.11); LYMPHOCYTES 10.4 %; LYMPHOCYTES ABSOLUTE 1.76 10/3/uL (0.67-4.30); MEAN CORPUS HGB CONC 29.5 g/dL (32.0-36.0); MEAN CORPUSCULAR HEMOGLOB 27.1 pg (26.0-34.0); MEAN PLATELET VOLUME 8.8 fL (9.2-13.0); MONOCYTES ABSOLUTE 1.69 10/3/uL (0.21-1.20); NEUTROPHILS 72.4 %; NEUTROPHILS ABSOLUTE 12.24 10/3/uL (2.02-8.40); PLATELET COUNT 556 10/3/uL (150-400); RBC DISTRIBUTION WIDTH 14.4 % (12.0-16.0); WHITE BLOOD CELLS 16.9 10/3/uL (4.5-10.5)
[2016-09-12 05:39] LABS: MANUAL DIFF NO %
[2016-09-12 05:41] LABS: A/G RATIO 0.4 (0.7-1.9); ALBUMIN 1.7 G/DL (3.5-5.0); ALKALINE PHOSPHATASE 49 U/L (45-117); BUN (BLOOD UREA NITROGEN) 9 MG/DL (6-23); CALCIUM, SERUM 7.9 MG/DL (8.5-10.4); CHLORIDE, SERUM 115 MMOL/L (96-112); CO2 (CARBON DIOXIDE) 20 MMOL/L (24-34); CREATININE 0.73 MG/DL (0.55-1.02); GFR AFRICAN AMERICAN 94 ML/MIN (>=60); GFR NON AFRICAN AMERICAN 81 ML/MIN (>=60); POTASSIUM, SERUM 3.8 MMOL/L (3.5-5.3); SGOT(AST) 19 U/L (5-40); SGPT(ALT) 18 U/L (5-65); SODIUM, SERUM 147 MMOL/L (135-148); TOTAL BILIRUBIN 0.3 MG/DL (0-1.2); TOTAL PROTEIN 5.7 G/DL (6.0-8.5)
[2016-09-12 05:42] LABS: GLUCOSE, SERUM 84 MG/DL (60-99)
[2016-09-12 07:48] LABS: BAND NEUTROPHILS 5 %; BASOPHILS 1 %; BASOPHILS ABSOLUTE (CALC) 0.17 10/3/uL (0.0-0.16); IMMATURE GRANS ABSOLUTE (CALC) 0.34 10/3/uL (0.0-0.11); LYMPHOCYTES 9 %; LYMPHOCYTES ABSOLUTE (CALC) 1.52 10/3/uL (0.67-4.30); METAMYELOCYTES 2 %; MONOCYTES 6 %; MONOCYTES ABSOLUTE (CALC) 1.01 10/3/uL (0.21-1.20); NEUTROPHILS ABSOLUTE (CALC) 13.86 10/3/uL (2.02-8.40); SEGMENTED NEUTROPHIL (0) 77 %; TOTAL NUCLEATED CELLS 100
[2016-09-12 07:49] LABS: PLATELET ESTIMATE SLT INC (ADEQUATE); POLYCHROMASIA 1+ (2-5/OIF) (0-1/OIF)
[2016-09-13 05:18] LABS: BASOPHILS 0.3 %; BASOPHILS ABSOLUTE 0.05 10/3/uL (0.0-0.16); EOSINOPHILS 1.8 %; EOSINOPHILS ABSOLUTE 0.27 10/3/uL (0.0-0.53); HEMATOCRIT 32.5 % (36.0-48.0); HEMOGLOBIN 10.1 g/dL (12.0-16.0); IMMATURE GRANULOCYTES ABSOLUTE 0.45 10/3/uL (0.0-0.11); LYMPHOCYTES 10.6 %; MEAN CORPUSCULAR HEMOGLOB 28.4 pg (26.0-34.0); MEAN CORPUSCULAR VOLUME 91.3 fL (80-100); MEAN PLATELET VOLUME 8.6 fL (9.2-13.0); MONOCYTES 10.4 %; MONOCYTES ABSOLUTE 1.57 10/3/uL (0.21-1.20); NEUTROPHILS 73.9 %; NEUTROPHILS ABSOLUTE 11.16 10/3/uL (2.02-8.40); PLATELET COUNT 527 10/3/uL (150-400); RBC DISTRIBUTION WIDTH 14.4 % (12.0-16.0); RED CELL COUNT 3.56 10/6/uL (4.0-5.6); WHITE BLOOD CELLS 15.1 10/3/uL (4.5-10.5)
[2016-09-13 05:20] LABS: MANUAL DIFF NO %; MEAN CORPUS HGB CONC 31.1 g/dL (32.0-36.0)
== END 2016-09-15 16:36 | DRG 853 ==
LOC: 5NO 19:26 → CVICU 09-06 13:57 → 5NO 09-08 14:09
PROVIDERS: Hospitalist; Internal Medicine; Nurse Practitioner Family; Thoracic Surgery (Cardiothoracic Vascular Surgery)
PROC: 0BDN4ZZ Extraction of Right Pleura, Percutaneous Endoscopic Approach (ICD-10-PCS; principal; 2016-09-06 16:00)
DX: A41.9 Sepsis, unspecified organism (principal); J86.9 Pyothorax without fistula; J96.01 Acute respiratory failure with hypoxia; J18.9 Pneumonia, unspecified organism; N17.9 Acute kidney failure, unspecified; D69.6 Thrombocytopenia, unspecified; I47.1 Supraventricular tachycardia; J44.0 Chronic obstructive pulmonary disease with (acute) lower respiratory infection; Z85.3 Personal history of malignant neoplasm of breast; Z87.891 Personal history of nicotine dependence; F32.9 Major depressive disorder, single episode, unspecified; G89.29 Other chronic pain; I10 Essential (primary) hypertension; E78.5 Hyperlipidemia, unspecified; M81.0 Age-related osteoporosis without current pathological fracture; F41.8 Other specified anxiety disorders; K21.9 Gastro-esophageal reflux disease without esophagitis; Z88.1 Allergy status to other antibiotic agents; Z96.641 Presence of right artificial hip joint
CPT/HCPCS: 31720; 36415; 36600; 71010; 71020; 71250; 74176; 80048; 80053; 80069; 80076; 82805; 82962; 83605; 83735; 83880; 84100; 84145; 84439; 84443; 84484; 85025; 86850; 86900; 86901; 87040; 87070; 87205; 87449; 87493; 87493-59; 87804; 93005; 94002; 94003; 94640; 94660; 94770; 96365; 97110-GP; 97116-GP; 97161-GP; 99291; A9270-GY; C1751; C9113; G8978-CK-GP; G8979-CI-GP; J0456; J0690; J1450; J1956; J2250; J2370; J2405; J2543; J2710; J2795; J3010; P9045